=== PATIENT | male | born 1945 | race Two or more races ===

== ENCOUNTER 2023-06-18 12:16 | Inpatient (IN) | payer MEDICARE, BC ==
[2023-06-18] MEDS ORDERED: SODIUM CHLORIDE 0.9% 1,000 ML IV STA ×2 (12:41)
[2023-06-18] MEDS ORDERED: methylPREDNISolone SOD SUCCI 125 MG/2 ML VIAL IV STA (12:41)
[2023-06-18] MEDS ORDERED: IPRATROPIUM-ALBUTEROL 3 ML NEB INHALATION STA ×2 (12:41→14:41)
[2023-06-18] MEDS ORDERED: SODIUM CHLORIDE 0.9% 500 ML 500 ML IV STA ×2 (12:41→14:58)
[2023-06-18] MEDS ORDERED: AZITHROMYCIN 500 MG in SODIUM CHLORIDE 0.9% 250 ML IVPB STA (12:42)
--- NOTE | 2023-06-18 12:43 | ED ---
Weakness HPI - General Chief complaint: Altered Mental Status Stated complaint: Hypertension Time Seen by Provider: 06/18/23 12:19 Source: EMS, RN notes reviewed, old records reviewed Mode of arrival: EMS Limitations: no limitations - History of Present Illness Initial comments: This is a 77-year-old male to the emergency department for evaluation. Patient presents emergency department today for evaluation regards to weakness severe. Lightheadedness dizziness weakness. Patient is still very short of breath here in the emergency 5 and has not been feeling well. Increased cough and congestion with low blood pressure per extended care facility. MD Complaint: generalized weakness, focal weakness -: hour(s) Location: generalized Severity: severe Severity scale (1-10): 9 Quality: tingling Consistency: constant Improves with: none Worsens with: none Context: recent illness, history of similar Associated Symptoms: chest pain, confusion, fever/chills, nausea/vomiting, sh ortness of breath - Related Data Home Medications Medication Instructions Recorded Confirmed Acetaminophen Tab [Tylenol] 650 mg PO Q4H PRN 06/18/23 06/21/23 Alendronate Sodium [Fosamax] 70 mg PO TH 06/18/23 06/21/23 Clobetasol Propionate [Temovate 1 applic TOPICAL BID@0800,1700 06/18/23 06/21/23 0.05% Cream] Clopidogrel [Plavix] 75 mg PO DAILY 06/18/23 06/21/23 Ensure Enlive 237 ml PO TID@0800,1200,1700 06/18/23 06/21/23 Famotidine [Pepcid] 20 mg PO BID@0800,1700 06/18/23 06/21/23 Fluticasone Nasal [place] [Flonase 1 spray EA NOSTRIL DAILY 06/18/23 06/21/23 Nasal [place]] Fluticasone Propion/Salmeterol 1 puff INHALATION RT-BID@0800,1700 06/18/23 06/21/23 [Fluticasone-Salmeterol 500-50] Furosemide [Lasix] 20 mg PO DAILY PRN 06/18/23 06/21/23 Ipratropium-Albuterol Nebulize 3 ml INHALATION RT-QID PRN 06/18/23 06/21/23 [Duoneb 0.5 mg-3 mg/3 ml Soln] Ipratropium-Albuterol Nebulize 3 ml INHALATION RT-TID 06/18/23 06/21/23 [Duoneb 0.5 mg-3 mg/3 ml Soln] Levalbuterol Nebulized [Xopenex 1.25 mg INHALATION RT-Q6H PRN 06/18/23 06/21/23 Nebulized] Lidocaine 5% Patch [Lidoderm] 1 patch TOPICAL DAILY 06/18/23 06/21/23 Magic Cup 1 dose PO BID@1200,1700 06/18/23 06/21/23 Magnesium Hydroxide [Milk of 7,200 mg PO Q2D PRN 06/18/23 06/21/23 Magnesia Concentrate] Metoprolol Succinate (ER) [Toprol 12.5 mg PO DAILY 06/18/23 06/21/23 Xl] Midodrine [ProAmatine] 5 mg PO TID@0800,1200,1700 06/18/23 06/21/23 Multivitamins, Thera [Multivitamin 1 tab PO DAILY 06/18/23 06/21/23 (formulary)] Na Phos,M-B/Na Phos,Di-Ba [Fleet 133 ml RECTAL DAILY PRN 06/18/23 06/21/23 Adult] Rivaroxaban [Xarelto] 20 mg PO DAILY@1700 06/18/23 06/21/23 Rosuvastatin [Crestor] 20 mg PO HS 06/18/23 06/21/23 Sodium Chloride 0.65% Nasal [Deep 2 spray NASAL QID PRN 06/18/23 06/21/23 Sea (Saline)] Tamsulosin [Flomax] 0.4 mg PO BID@0800,1700 06/18/23 06/21/23 Tiotropium 18 Mcg/Puff [Spiriva] 1 puff INHALATION RT-DAILY 06/18/23 06/21/23 bisacodyL [Dulcolax] 10 mg RECTAL DAILY PRN 06/18/23 06/21/23 polyethylene glycoL 3350 [Miralax] 17 gm PO BID PRN 06/18/23 06/21/23 predniSONE [Deltasone] See Taper PO DIRECTED 06/18/23 06/21/23 Allergies Allergy/AdvReac Type Severity Reaction Status Date / Time morphine Allergy Unknown Verified 06/18/23 14:19 Review of Systems ROS Statement: Those systems with pertinent positive or pertinent negative responses have been documented in the HPI. ROS Other: All systems not noted in ROS Statement are negative. General Exam Limitations: no limitations General appearance: alert, in no apparent distress, anxious Head exam: Present: atraumatic, normocephalic, normal inspection Eye exam: Present: normal appearance, PERRL, EOMI. Absent: scleral icterus, conjunctival injection, periorbital swelling ENT exam: Present: normal exam, mucous membranes moist Neck exam: Present: normal inspection. Absent: tenderness, meningismus, lymphadenopathy Respiratory exam: Present: normal lung sounds bilaterally. Absent: respiratory distress, wheezes, rales, rhonchi, stridor Cardiovascular Exam: Present: regular rate, normal rhythm, normal heart sounds. Absent: systolic murmur, diastolic murmur, rubs, gallop, clicks GI/Abdominal exam: Present: soft, normal bowel sounds. Absent: distended, tenderness, guarding, rebound, rigid Extremities exam: Present: normal inspection, full ROM, normal capillary refill. Absent: tenderness, pedal edema, joint swelling, calf tenderness Back exam: Present: normal inspection Neurological exam: Present: alert, oriented X3, CN II-XII intact Psychiatric exam: Present: normal affect, normal mood Skin exam: Present: warm, dry, intact, normal color. Absent: rash Course Vital Signs 06/18/23 06/18/23 06/18/23 12:22 13:39 14:06 Temperature Pulse Rate 98 114 H Respiratory 18 18 Rate Blood Pressure 122/106 86/70 91/60 O2 Sat by Pulse 92 L Oximetry 06/18/23 06/18/23 06/18/23 14:17 14:27 15:00 Temperature 98.1 F Pulse Rate 107 H 103 H 111 H Respiratory 20 18 18 Rate Blood Pressure 91/59 O2 Sat by Pulse 92 L Oximetry 06/18/23 06/18/23 06/18/23 15:27 17:04 17:39 Temperature 98.5 F Pulse Rate 103 H 102 H 96 Respiratory 19 18 18 Rate Blood Pressure 94/63 86/63 87/57 O2 Sat by Pulse 97 97 94 L Oximetry - Reevaluation(s) Reevaluation #1: 06/18/23 14:46 Medical record is reviewed Reevaluation #2: 06/18/23 14:46 Patient is having mildly improved blood pressure here in the ER will still very short of breath Reevaluation #3: 06/18/23 14:46 Patient informed results questions answered Reevaluation #4: 06/18/23 14:46 Was pt. sent in by a medical professional or institution ([facility] Bec[facility], [employer], urgent care, hospital, or [place] health care facility...) When possible be specific @ -no Did you speak to anyone other than the patient for history (EMS, parent, family, police, friend...)? What history was obtained from this source @ -no Did you review nursing and triage notes (agree or disagree)? Why? @ -agree Are old charts reviewed (outside hosp., previous admission, EMS record, old EKG, old radiological studies, urgent care reports/EKG's, [place] [facility] facility records)? Report findings @ -yes Differential Diagnosis (chest pain, altered mental status, abdominal pain women, abdominal pain men, vaginal bleeding, weakness, fever, dyspnea, syncope, headache, dizziness, GI bleed, back pain, seizure, CVA, palpatations, mental health, musculoskeletal)? @ -prior EKG interpreted by me (3pts min.). @ -yes X-rays interpreted by me (1pt min.). @ -yes CT interpreted by me (1pt min.). @ -no U/S interpreted by me (1pt. min.). @ -no What testing was considered but not performed or refused? (CT, X-rays, U/S, labs)? Why? @ -none What meds were considered but not given or refused? Why? @ -none Did you discuss the management of the patient with other professionals (professionals i.e. [facility] Becerra, FURNITURE [employer]AILER, lab, RT, psych nurse, executive secretary social welfare, police lieutenant, teacher, contact officer, porter sample case)? Give summary @ -no Was smoking cessation discussed for >3mins.? @ -no Was critical care preformed (if so, how long)? @ -no Were there social determinants of health that impacted care today? How? (Homelessness, low income, unemployed, alcoholism, drug addiction, transportation, low edu. Level, literacy, decrease access to med. care, [facility], rehab)? @ -none Was there de-escalation of care discussed even if they declined (Discuss DNR or withdrawal of care, Hospice)? DNR status @ -no What co-morbidities impacted this encounter? (DM, HTN, Smoking, COPD, CAD, Cancer, CVA, ARF, Chemo, Hep., AIDS, mental health diagnosis, sleep apnea, morbid obesity)? @ -none Was patient admitted / discharged? Hospital course, mention meds given and route, prescriptions, significant lab abnormalities, going to OR and other pertinent info. @ -77 male to the emergency department for evaluation patient presents today for evaluation patient is here for evaluation regards to severe weakness lightheadedness dizziness shortness of breath with COPD pneumonia and sepsis. Patient be admitted for supportive care Admitted Undiagnosed new problem with uncertain prognosis? @ -no Drug Therapy requiring intensive monitoring for toxicity (Heparin, Nitro, Insulin, Cardizem)? @ -no Were any procedures done? @ -no Diagnosis/symptom? @ -Sepsis with pneumonia hypoxia and respiratory failure Acute, or Chronic, or Acute on Chronic? @ -Acute Uncomplicated (without systemic symptoms) or Complicated (systemic symptoms)? @ -Complicated Side effects of treatment? @ -no Exacerbation, Progression, or Severe Exacerbation? @ -exacerbation Poses a threat to life or bodily function? How? (Chest pain, [place], [place], pneumonia, PE, COPD, DKA, ARF, appy, cholecystitis, CVA, Diverticulitis, Homicidal, Suicidal, threat to staff... and all critical care pts) @ -yes severe sepsis Reevaluation #5: 06/18/23 14:46 Differential Dyspnea: Coronary syndrome, arrhythmia, tamponade, asthma, COPD, pulmonary embolism, pne umonia, pneumothorax, pulmonary effusion, anaphylaxis, diabetic ketoacidosis, flailed chest, pulmonary contusion, diaphragmatic rupture, anemia, neuromuscular, this is not meant to be an all-inclusive list. Differential Weakness: Hypoglycemia, shock, sepsis, hyponatremia, anemia, infection, [place], ETOH, adverse medicine reaction, overdose, stroke, this is not meant to be an all-inclusive list. - Consultations Consultation #1: Spoke with Dr. Morse agrees to admit this patient EKG Findings - EKG Comments: EKG Findings:: EKG is A. fib with RVR 108 QRS 124 QTC 366 Procedures - Sepsis Sepsis Focused Exam #1 Time Sepsis Criteria Met: 14:46 Sepsis Focused Exam Date: 06/18/23 Sepsis Focused Exam Time: 17:00 Sepsis Focused Exam Complete: Yes Vital Signs & RN Notes Reviewed: Yes Capillary Refill: < 2 Seconds: Fingers, Toes Peripheral Pulses: Normal: Radial (R), Radial (L), Posterior Tibialis (R), Posterior Tibialis (L), Dorsalis Pedis (R), Dorsalis Pedis (L) Skin Color: Normal for Patient Respiratory Exam: respiratory distress, wheezes Cardiovascular Exam: regular rate Medical Decision Making - Medical Decision Making 77 male to the emergency department for evaluation patient presents today for evaluation patient is here for evaluation regards to severe weakness lightheadedness dizziness shortness of breath with COPD pneumonia and sepsis. Patient be admitted for supportive care - Lab Data Result diagrams: 06/19/23 07:05 06/19/23 06:59 Lab Results 06/18/23 06/18/23 06/18/23 Range/Units 12:55 12:55 12:55 WBC 7.7 (3.8-10.6) k/uL RBC 2.72 L (4.30-5.90) m/uL Hgb 8.1 L (13.0-17.5) gm/dL Hct 23.9 L (39.0-53.0) % MCV 87.8 (80.0-100.0) fL MCH 29.7 (25.0-35.0) pg MCHC 33.8 (31.0-37.0) g/dL RDW 15.6 H (11.5-15.5) % Plt Count 84 L (150-450) k/uL MPV 8.9 Neutrophils % 94 % Lymphocytes % 2 % Monocytes % 3 % Eosinophils % 0 % Basophils % 0 % Neutrophils # 7.2 (1.3-7.7) k/uL Lymphocytes # 0.1 L (1.0-4.8) k/uL Monocytes # 0.3 (0-1.0) k/uL Eosinophils # 0.0 (0-0.7) k/uL Basophils # 0.0 (0-0.2) k/uL Manual Slide Review Performed Polychromasia Present Hypochromasia Slight PT 17.3 H (10.0-12.5) sec INR 1.7 H (<1.2) APTT 35.6 H (22.0-30.0) sec Sodium 127 L (137-145) mmol/L Potassium 4.0 (3.5-5.1) mmol/L Chloride 92 L (98-107) mmol/L Carbon Dioxide 30 (22-30) mmol/L Anion Gap 5 mmol/L BUN 30 H (9-20) mg/dL Creatinine 0.30 L (0.66-1.25) mg/dL Est GFR (CKD-EPI)AfAm >90 (>60 ml/min/1.73 sqM) Est GFR (CKD-EPI)NonAf >90 (>60 ml/min/1.73 sqM) Glucose 119 H (74-99) mg/dL Lactic Ac Sepsis Rflx Plasma Lactic Acid [place] (0.7-2.0) mmol/L Calcium 7.3 L (8.4-10.2) mg/dL Phosphorus 2.7 (2.5-4.5) mg/dL Magnesium 2.1 (1.6-2.3) mg/dL Total Bilirubin 0.8 (0.2-1.3) mg/dL AST 43 (17-59) U/L ALT 45 (4-49) U/L Alkaline Phosphatase 79 (38-126) U/L Troponin I (0.000-0.034) ng/mL NT-Pro-B Natriuret Pep 723 pg/mL Total Protein 4.5 L (6.3-8.2) g/dL Albumin 2.4 L (3.5-5.0) g/dL TSH 0.830 (0.465-4.680) mIU/L 06/18/23 06/18/23 06/18/23 Range/Units 12:55 12:55 13:37 WBC (3.8-10.6) k/uL RBC (4.30-5.90) m/uL Hgb (13.0-17.5) gm/dL Hct (39.0-53.0) % MCV (80.0-100.0) fL MCH (25.0-35.0) pg MCHC (31.0-37.0) g/dL RDW (11.5-15.5) % Plt Count (150-450) k/uL MPV Neutrophils % % Lymphocytes % % Monocytes % % Eosinophils % % Basophils % % Neutrophils # (1.3-7.7) k/uL Lymphocytes # (1.0-4.8) k/uL Monocytes # (0-1.0) k/uL Eosinophils # (0-0.7) k/uL Basophils # (0-0.2) k/uL Manual Slide Review Polychromasia Hypochromasia PT (10.0-12.5) sec INR (<1.2) APTT (22.0-30.0) sec Sodium (137-145) mmol/L Potassium (3.5-5.1) mmol/L Chloride (98-107) mmol/L Carbon Dioxide (22-30) mmol/L Anion Gap mmol/L BUN (9-20) mg/dL Creatinine (0.66-1.25) mg/dL Est GFR (CKD-EPI)AfAm (>60 ml/min/1.73 sqM) Est GFR (CKD-EPI)NonAf (>60 ml/min/1.73 sqM) Glucose (74-99) mg/dL Lactic Ac Sepsis Rflx Y Plasma Lactic Acid [place] 2.2 H* (0.7-2.0) mmol/L Calcium (8.4-10.2) mg/dL Phosphorus (2.5-4.5) mg/dL Magnesium (1.6-2.3) mg/dL Total Bilirubin (0.2-1.3) mg/dL AST (17-59) U/L ALT (4-49) U/L Alkaline Phosphatase (38-126) U/L Troponin I 0.041 H* (0.000-0.034) ng/mL NT-Pro-B Natriuret Pep pg/mL Total Protein (6.3-8.2) g/dL Albumin (3.5-5.0) g/dL TSH (0.465-4.680) mIU/L - EKG Data -: EKG Interpreted by Me - Radiology Data Radiology results: report reviewed (Chest x-rays positive for pneumonia), image reviewed Critical Care Time Critical Care Time: Yes Total Critical Care Time: 31 Disposition Clinical Impression: Sepsis, Altered mental status, Delirium due to general medical condition, Pneumonia, COPD (chronic obstructive pulmonary disease), Hypoxia, Acute respiratory failure Disposition: ADMITTED IP TO THIS HOSP Is patient prescribed a controlled substance at d/c from ED?: No Time of Disposition: 14:45
[2023-06-18 13:15] LABS: Basophils % (A) 0 %; Eosinophils % (A) 0 %; HCT 23.9 % (39.0-53.0); HGB 8.1 gm/dL (13.0-17.5); Hypochromasia Slight; Lymphocytes # (A) 0.1 k/uL (1.0-4.8); Lymphocytes % (A) 2 %; MCH 29.7 pg (25.0-35.0); MCHC 33.8 g/dL (31.0-37.0); MCV 87.8 fL (80.0-100.0); Mean Platelet Volume 8.9; Monocytes # (A) 0.3 k/uL (0-1.0); Monocytes % (A) 3 %; Neutrophils # (A) 7.2 k/uL (1.3-7.7); Neutrophils % (A) 94 %; RBC 2.72 m/uL (4.30-5.90); RDW 15.6 % (11.5-15.5); WBC 7.7 k/uL (3.8-10.6)
[2023-06-18 13:16] LABS: INR 1.7 (<1.2); Partial Thromboplastin Time 35.6 sec (22.0-30.0); Prothrombin Time 17.3 sec (10.0-12.5)
[2023-06-18 13:17] LABS: ALT 45 U/L (4-49); AST 43 U/L (17-59); African American GFR (CKD) >90 (>60 ml/min/1.73 sqM); Albumin 2.4 g/dL (3.5-5.0); Alkaline Phosphatase 79 U/L (38-126); Anion Gap 5 mmol/L; Blood Urea Nitrogen 30 mg/dL (9-20); Calcium 7.3 mg/dL (8.4-10.2); Carbon Dioxide 30 mmol/L (22-30); Chloride 92 mmol/L (98-107); Glucose 119 mg/dL (74-99); Magnesium 2.1 mg/dL (1.6-2.3); Non-African American GFR(CKD) >90 (>60 ml/min/1.73 sqM); Phosphorus 2.7 mg/dL (2.5-4.5); Sodium 127 mmol/L (137-145); Total Bilirubin 0.8 mg/dL (0.2-1.3); Total Protein 4.5 g/dL (6.3-8.2)
[2023-06-18 13:24] LABS: Platelet Count 84 k/uL (150-450)
[2023-06-18 13:26] LABS: NT-Pro-B-Type Natriuretic Pept 723 pg/mL; Polychromasia Present
--- NOTE | 2023-06-18 13:39 | XR ---
EXAMINATION TYPE: XR chest 1V portable DATE OF EXAM: 06/18/2023 HISTORY: Shortness of breath. COMPARISON: None. TECHNIQUE: Single view of the chest is submitted. FINDINGS: Demonstrated are scattered senescent parenchymal change. Moderate upper lobe emphysematous changes s uggested. Right lower lobe infiltrate. Correlate for pneumonia. The heart is stable. Hilar and mediastinal structures are within normal limits. Degenerative changes are seen of the dorsal spine. IMPRESSION: 1. Right lower lobe infiltrate. Correlate for pneumonia.
[2023-06-18] MEDS ORDERED: ONDANSETRON 4 MG/2 ML VIAL IVP PRN (14:41)
[2023-06-18] MEDS ORDERED: NALOXONE 0.4 MG/ML 1 ML VIAL IV PRN (14:41)
[2023-06-18] MEDS ORDERED: IBUPROFEN 400 MG TAB PO PRN (14:41)
[2023-06-18] MEDS ORDERED: PNEUMONIA PROTOCOL UTILIZED 1 EACH MISC PO PRN (14:41)
[2023-06-18] MEDS ORDERED: ACETAMINOPHEN TAB 325 MG TAB PO PRN ×2 (14:41→18:51)
[2023-06-18] MEDS: ALBUTEROL NEBULIZED 2.5 MG/3 ML INHALATION SCH ×2 (15:54→19:38)
[2023-06-18] MEDS ORDERED: FUROSEMIDE 20 MG TAB PO PRN (18:51)
[2023-06-18] MEDS ORDERED: MAGNESIUM HYDROXIDE 2,400 MG/30 ML CUP PO PRN (18:51)
[2023-06-18] MEDS ORDERED: ALBUTEROL NEBULIZED 2.5 MG/3 ML INHALATION PRN (18:51)
[2023-06-18] MEDS ORDERED: IPRATROPIUM-ALBUTEROL 3 ML NEB INHALATION PRN (18:51)
[2023-06-18] MEDS ORDERED: NA PHOS,M-B/NA PHOS,DI-BA 133 ML ENEMA RECTAL PRN (18:51)
[2023-06-18] MEDS ORDERED: bisacodyL 10 MG SUPP RECTAL PRN (18:51)
[2023-06-18] MEDS ORDERED: polyethylene glycoL 3350 17 GM POWD.PACK PO PRN (18:51)
[2023-06-18] MEDS ORDERED: SODIUM CHLORIDE 0.65% NASAL SPRAY 44 ML BTL NASAL PRN (18:51)
[2023-06-18] MEDS: IPRATROPIUM-ALBUTEROL 3 ML NEB INHALATION SCH (19:39)
[2023-06-18] MEDS: ATORVASTATIN 40 MG TAB PO SCH (21:21)
[2023-06-19 02:23] LABS: Appearance,Urine Clear (Clear); Color,Urine Yellow; Glucose,Urine (UA) Negative (Negative); Ketones,Urine 1+ (Negative); PH, Urine 6.5 (5.0-8.0); Protein,Urine Trace (Negative)
[2023-06-19 02:24] LABS: Bilirubin,Urine Negative (Negative); Blood,Urine Negative (Negative); Leukocyte Esterase,Urine Negative (Negative); Nitrite,Urine Negative (Negative); Urobilinogen,Urine <2.0 mg/dL (<2.0)
[2023-06-19 02:27] LABS: Mucus,Urine Rare /hpf; RBC,Urine 2 /hpf (0-5); Squamous Epithelial Cell,Urine <1 /hpf (0-4); WBC,Urine 4 /hpf (0-5)
[2023-06-19] MEDS: ALBUTEROL NEBULIZED 2.5 MG/3 ML INHALATION SCH (07:43)
[2023-06-19] MEDS: IPRATROPIUM-ALBUTEROL 3 ML NEB INHALATION SCH ×4 (07:43→20:10)
[2023-06-19 07:56] LABS: Basophils % (A) 0 %; Eosinophils % (A) 0 %; HCT 23.7 % (39.0-53.0); HGB 7.5 gm/dL (13.0-17.5); Hypochromasia Moderate; Lymphocytes # (A) 0.1 k/uL (1.0-4.8); Lymphocytes % (A) 2 %; MCH 29.3 pg (25.0-35.0); MCHC 31.8 g/dL (31.0-37.0); MCV 92.1 fL (80.0-100.0); Mean Platelet Volume 7.9; Monocytes # (A) 0.2 k/uL (0-1.0); Monocytes % (A) 3 %; Neutrophils # (A) 6.6 k/uL (1.3-7.7); Neutrophils % (A) 95 %; RBC 2.57 m/uL (4.30-5.90)
[2023-06-19 07:59] LABS: Platelet Count 84 k/uL (150-450)
[2023-06-19] MEDS ORDERED: NON FORMULARY DRUG (Tiotropium 18 Mcg/Puff 1 PUFF Each) INHALATION SCH (08:00)
[2023-06-19] MEDS ORDERED: NON FORMULARY DRUG (Ensure Enlive 237 ML) PO SCH (08:00)
[2023-06-19] MEDS ORDERED: SYMBICORT 160-4.5 MCG INHALER INHALATION SCH (08:00)
[2023-06-19 08:09] LABS: ALT 47 U/L (4-49); AST 40 U/L (17-59); African American GFR (CKD) >90 (>60 ml/min/1.73 sqM); Albumin 2.2 g/dL (3.5-5.0); Alkaline Phosphatase 80 U/L (38-126); Anion Gap 2 mmol/L; Blood Urea Nitrogen 23 mg/dL (9-20); Calcium 6.8 mg/dL (8.4-10.2); Carbon Dioxide 29 mmol/L (22-30); Chloride 99 mmol/L (98-107); Globulin 2.1 g/dL; Glucose 96 mg/dL (74-99); Non-African American GFR(CKD) >90 (>60 ml/min/1.73 sqM); Phosphorus 2.5 mg/dL (2.5-4.5); Potassium 3.6 mmol/L (3.5-5.1); Sodium 130 mmol/L (137-145); Total Bilirubin 0.9 mg/dL (0.2-1.3); Total Protein 4.3 g/dL (6.3-8.2)
[2023-06-19] MEDS: METOPROLOL SUCCINATE (ER) 25 MG TAB.ER.24H PO SCH (08:24)
[2023-06-19] MEDS: CLOPIDOGREL 75 MG TAB PO SCH (08:24)
[2023-06-19] MEDS: MULTIVITAMINS, THERA 1 EACH TAB PO SCH (08:24)
[2023-06-19] MEDS: TAMSULOSIN 0.4 MG CAP.ER.24H PO SCH ×2 (08:25→18:08)
[2023-06-19] MEDS: FAMOTIDINE 20 MG TAB PO SCH ×2 (08:25→18:08)
[2023-06-19] MEDS: MIDODRINE 5 MG TAB PO SCH ×3 (08:25→18:09)
[2023-06-19] MEDS: LIDOCAINE 5% PATCH TOPICAL SCH (08:26)
[2023-06-19] MEDS ORDERED: FLUTICASONE 50MCG/SPRAY NASAL 16GM EA NOSTRIL SCH (09:00)
[2023-06-19] MEDS ORDERED: NON FORMULARY DRUG (Magic Cup 1 EACH Ml) PO SCH (12:00)
--- NOTE | 2023-06-19 12:24 | XR ---
EXAM: XR chest 1V portable CLINICAL INDICATION:Male, 77 years old with history of pneumonia; [facility] COMPARISON: Chest x-ray 06/18/2023 TECHNIQUE: Chest single view. FINDINGS: Lines/tubes/devices: EKG leads overlie the chest. No indwelling lines are seen. Cardiomediastinum: Patient is somewhat rotated to the right, limiting assessment. Grossly stable cardiomediastinal silho uette. Heart appears mildly enlarged. Aorta is somewhat tortuous. Right hilar opacity redemonstrated. Vasculature: No increased pulmonary vasculature. Lungs/pleura: COPD and chronic senescent changes. Similar appearing patchy consolidative opacity in the right lung base with partial obscuration of the hemidiaphragm noted. Small right pleural effusion not excluded. No visible pneumothorax. Nodular opacities towards the right lung apex appear similar to prior. Bones/soft tissues: Bony thorax appears grossly intact as seen. Small sclerotic density in the right humeral head. Region al soft tissues appear unremarkable. IMPRESSION: 1. Similar appearing patchy consolidative opacity in the right lung base, likely pneumonia. Possible small right pleural effusion. 2. Nodular opacities towards the right lung apex, and right hilar opacity, similar to prior. Finding s could relate to adenopathy and/or neoplasm. Further follow-up evaluation with CT is advised when cl inically appropriate.
--- NOTE | 2023-06-19 12:52 | P.CNPUL ---
History of Present Illness Consult date: 06/19/23 Requesting physician: Tapan Morse Reason for consult: dyspnea, COPD Chief complaint: Shortness of breath, altered mental status, hypotension History of present illness: This is 77-year-old male patient with a known history of chronic obstructive pulmonary disease on home oxygen at 3 L/m per nasal cannula, chronic tobacco dependence however quit approximately 3 months ago, BPH, hyperlipidemia, congestive heart failure, atrial fibrillation anticoagulated with Xarelto. He was brought into the emergency room yesterday for altered mental status and delirium and hypoxemia. Chest x-ray revealed patchy consolidative opacity in the right lung base and small right pleural effusion. Nodular opacities in the right lung apex and right hilar opacity. White counts and 0.0. Hemoglobin 7.5. Platelets 84,000. Sodium 1:30. Potassium 3.6. Bicarb 29. BUN 26. Creatinine 0.26. Troponin 0.041. ProBNP 723. He is seen today in consultation on the regular medical floor. He is currently resting comfortably in bed. Awake and alert. He has a very loose congested cough. He is maintaining O2 saturations in the low 90s on 3 L/m per nasal cannula. He is afebrile. He's been initiated on ceftriaxone and azithromycin. Anticoagulated with Xarelto. Review of Systems REVIEW OF SYSTEMS: CONSTITUTIONAL: Positive for generalized weakness. Denies any recent signifi cant weight loss or weight gain. EYES: Denies change in vision. EARS, NOSE, MOUTH, THROAT: Denies headaches, denies sore throat. CARDIOVASCULAR: Denies chest pain, palpitations or syncopal episodes. RESPIRATORY: Positive for shortness of breath, cough, congestion no hemoptysis. GASTROINTESTINAL: Denies change in appetite, denies abdominal pain GENITOURINARY: Denies hematuria, denies infections. MUSKULOSKELETAL: Denies pain, denies swelling. INTEGUMENTARY: Denies rash, denies eczema. NEUROLOGICAL: Positive for altered mental status. Denies recent memory loss, no recent seizure activity. PSYCHIATRIC: Denies anxiety, denies depression. HEMATOLOGIC/LYMPHATIC: Denies anemia, denies enlarged lymph nodes. Past Medical History History of Any Multi-Drug Resistant Organisms: None Reported Smoking Status: Former smoker Medications and Allergies Home Medications Medication Instructions Recorded Confirmed Type Acetaminophen Tab [Tylenol] 650 mg PO Q4H PRN 06/18/23 06/18/23 History Alendronate Sodium [Fosamax] 70 mg PO TH 06/18/23 06/18/23 History Clobetasol Propionate [Temovate 1 applic TOPICAL BID@0800,1700 06/18/23 06/18/23 History 0.05% Cream] Clopidogrel [Plavix] 75 mg PO DAILY 06/18/23 06/18/23 History Ensure Enlive 237 ml PO TID@0800,1200,1700 06/18/23 06/18/23 History Famotidine [Pepcid] 20 mg PO BID@0800,1700 06/18/23 06/18/23 History Fluticasone Nasal [place] [Flonase 1 spray EA NOSTRIL DAILY 06/18/23 06/18/23 History Nasal [place]] Fluticasone Propion/Salmeterol 1 puff INHALATION RT-BID@0800,1700 06/18/23 06/18/23 History [Fluticasone-Salmeterol 500-50] Furosemide [Lasix] 20 mg PO DAILY PRN 06/18/23 06/18/23 History Ipratropium-Albuterol Nebulize 3 ml INHALATION RT-QID PRN 06/18/23 06/18/23 History [Duoneb 0.5 mg-3 mg/3 ml Soln] Ipratropium-Albuterol Nebulize 3 ml INHALATION RT-TID 06/18/23 06/18/23 History [Duoneb 0.5 mg-3 mg/3 ml Soln] Levalbuterol Nebulized [Xopenex 1.25 mg INHALATION RT-Q6H PRN 06/18/23 06/18/23 History Nebulized] Lidocaine 5% Patch [Lidoderm] 1 patch TOPICAL DAILY 06/18/23 06/18/23 History Magic Cup 1 dose PO BID@1200,1700 06/18/23 06/18/23 History Magnesium Hydroxide [Milk of 7,200 mg PO Q2D PRN 06/18/23 06/18/23 History Magnesia Concentrate] Metoprolol Succinate (ER) [Toprol 12.5 mg PO DAILY 06/18/23 06/18/23 History Xl] Midodrine [ProAmatine] 5 mg PO TID@0800,1200,1700 06/18/23 06/18/23 History Multivitamins, Thera [Multivitamin 1 tab PO DAILY 06/18/23 06/18/23 History (formulary)] Na Phos,M-B/Na Phos,Di-Ba [Fleet 133 ml RECTAL DAILY PRN 06/18/23 06/18/23 History Adult] Rivaroxaban [Xarelto] 20 mg PO DAILY@1700 06/18/23 06/18/23 History Rosuvastatin [Crestor] 20 mg PO HS 06/18/23 06/18/23 History Sodium Chloride 0.65% Nasal [Deep 2 spray NASAL QID PRN 06/18/23 06/18/23 History Sea (Saline)] Tamsulosin [Flomax] 0.4 mg PO BID@0800,1700 06/18/23 06/18/23 History Tiotropium 18 Mcg/Puff [Spiriva] 1 puff INHALATION RT-DAILY 06/18/23 06/18/23 History bisacodyL [Dulcolax] 10 mg RECTAL DAILY PRN 06/18/23 06/18/23 History polyethylene glycoL 3350 [Miralax] 17 gm PO BID PRN 06/18/23 06/18/23 History predniSONE [Deltasone] See Taper PO DIRECTED 06/18/23 06/18/23 History Allergies Allergy/AdvReac Type Severity Reaction Status Date / Time morphine Allergy Unknown Verified 06/18/23 14:19 Physical Exam Vitals: Vital Signs Temp Pulse Pulse Resp BP BP Pulse Ox 06/19/23 08:00 104 H 17 06/19/23 07:55 93 06/19/23 07:44 92 06/19/23 07:10 97.6 F 104 H 17 90/55 91 L 06/19/23 02:00 98 F 68 19 100/67 91 L 06/18/23 19:50 96 06/18/23 19:49 97.7 F 65 19 86/60 97 06/18/23 19:40 94 L 06/18/23 19:39 96 06/18/23 17:39 98.5 F 96 18 87/57 94 L 06/18/23 17:04 102 H 18 86/63 97 06/18/23 15:27 103 H 19 94/63 97 06/18/23 15:00 98.1 F 111 H 18 91/59 92 L 06/18/23 14:27 103 H 18 06/18/23 14:17 107 H 20 06/18/23 14:06 114 H 18 91/60 06/18/23 13:39 98 18 86/70 92 L Intake and Output 06/18/23 06/19/23 06/19/23 22:59 06:59 14:59 Intake Total 180 Output Total 1400 Balance 180 -1400 Intake: Intake, IV Titration 130 Amount Sodium Chloride 0.9% 1, 130 000 ml @ 130 mls/hr IV . Q7H42M STA Rx#:[id number] Oral 50 Output: Urine 700 Straight 700 Post Void Residual 700 Other: Voiding Method External Catheter External Catheter # Voids 1 1 Weight 49.8 kg GENERAL EXAM: Alert, weak, cachectic, 77-year-old male, on 3 L nasal cannula, in no acute distress. HEAD: Normocephalic. EYES: Normal reaction of pupils, equal size. NOSE: Clear with pink turbinates. THROAT: No erythema or exudates. NECK: No masses, no JVD. CHEST: No chest wall deformity. LUNGS: Equal air entry with lateral end expiratory wheeze, diminished, crackles in the right lung base. CVS: S1 and S2 normal with no audible murmur, irregular rhythm. ABDOMEN: No hepatosplenomegaly, normal bowel sounds, no guarding or rigidity. SPINE: No scoliosis or deformity SKIN: No rashes CENTRAL NERVOUS SYSTEM: No focal deficits, tone is normal in all 4 extremities. EXTREMITIES: There is no peripheral edema. No clubbing, no cyanosis. Peripheral pulses are intact. Results - Laboratory Findings CBC and BMP: 06/19/23 07:05 06/19/23 06:59 PT/INR, D-dimer PT 17.3 sec (10.0-12.5) H 06/18/23 12:55 INR 1.7 (<1.2) H 06/18/23 12:55 Abnormal lab findings: Abnormal Labs 06/18/23 06/18/23 06/18/23 12:55 12:55 12:55 RBC 2.72 L Hgb 8.1 L Hct 23.9 L RDW 15.6 H Plt Count 84 L Lymphocytes # 0.1 L PT 17.3 H INR 1.7 H APTT 35.6 H Sodium 127 L Chloride 92 L BUN 30 H Creatinine 0.30 L Glucose 119 H Plasma Lactic Acid Harrison Calcium 7.3 L Troponin I Total Protein 4.5 L Albumin 2.4 L Urine Mucus 06/18/23 06/18/23 06/18/23 12:55 12:55 15:20 RBC Hgb Hct RDW Plt Count Lymphocytes # PT INR APTT Sodium Chloride BUN Creatinine Glucose Plasma Lactic Acid Harrison 2.2 H* Calcium Troponin I 0.041 H* 0.040 H* Total Protein Albumin Urine Mucus 06/18/23 06/18/23 06/19/23 17:33 23:59 06:59 RBC Hgb Hct RDW Plt Count Lymphocytes # PT INR APTT Sodium 130 L Chloride BUN 23 H Creatinine 0.26 L Glucose Plasma Lactic Acid Harrison Calcium 6.8 L Troponin I 0.041 H* Total Protein 4.3 L Albumin 2.2 L Urine Mucus Rare H 06/19/23 07:05 RBC 2.57 L Hgb 7.5 L Hct 23.7 L RDW 16.0 H Plt Count 84 L Lymphocytes # 0.1 L PT INR APTT Sodium Chloride BUN Creatinine Glucose Plasma Lactic Acid Harrison Calcium Troponin I Total Protein Albumin Urine Mucus - Diagnostic Findings Chest x-ray: image reviewed Assessment and Plan Assessment: Acute on chronic hypoxemic respiratory failure secondary to an acute exac erbation of COPD complicated by possible right lower lobe pneumonia and some fluid volume overload History of oxygen dependent chronic obstructive pulmonary disease Atrial fibrillation, antiplatelet with Eliquis Hyperlipidemia Hypertension History of congestive heart failure History of BPH Plan: The patient was seen and evaluated Chest x-rays, labs and medications reviewed Continue Rocephin and azithromycin Allergen IV Cymetra 6 mg every 6 hours Add to an every inhalations 4 times a day and when necessary Add Pulmicort and Perforomist inhalations Add Mucinex Obtain a sputum sample We will continue to follow and make further recommendations based on his clinical status I have personally seen and examined the patient, performed the documentation and the assessment and plan as written. Number of minutes spent on the visit: 20.
[2023-06-19] MEDS: methylPREDNISolone SOD SUCCI 125 MG/2 ML VIAL IV SCH ×2 (13:25→18:11)
[2023-06-19] MEDS: SODIUM CHLORIDE 0.9% 1,000 ML IV SCH (13:25)
[2023-06-19] MEDS: AZITHROMYCIN 500 MG in SODIUM CHLORIDE 0.9% 250 ML IVPB SCH (13:26)
[2023-06-19] MEDS: guaiFENesin 600 MG TABLET.ER PO SCH ×3 (13:28→20:54)
[2023-06-19 13:48] VITALS: BMI 15.7
--- NOTE | 2023-06-19 15:03 | P.HPIM ---
History of Present Illness H&P Date: 06/19/23 Chief Complaint: Weakness diet congestion This is a 77-year-old patient who follows with Dr. Noah Riggins. History is obtained by patient's significant other Greta at the Bedside. They've Been Together for over 21 Years. Patient uses discharge from [facility] and sent to [facility] rehab about 5 days ago. Patient for the longest times had decreased oral intake. Congested cough. Long-standing smoker. Loss of muscle mass and rate. Tired. Dizzy. Low blood pressure. Does use a walker. Review of systems: GEN.: Tired decreased appetite EYES: None HEENT: None NECK: None RESPIRATORY: Cough short of breath CARDIOVASCULAR: None GASTROINTESTINAL: None GENITOURINARY: None MUSCULOSKELETAL: Increase muscle vasculitis weakness LYMPHATICS: None HEMATOLOGICAL: None PSYCHIATRY: None NEUROLOGICAL: None Past medical history to include: COPD, atrial flutter, peripheral artery disease with a bypass, hyperlipidemia, GERD, BPH Social history: Patient stopped smoking about 6 weeks ago. Average 3-4 packs a day for most of his life. Now down to a few cigarettes a day. Smoking for 56 years. Patient's significant other is Greta Physical examination: VITAL SIGNS: 97.6, 104, 17, 90/55, 91% on 3 L GENERAL: BMI 15.8, reclining but awake tired. EYES: [Pupils equal. Conjunctiva pale l. HEENT: [External appearance of nose and ears normal, oral cavity-poor oral hygiene with crusty presentation NECK: JVD not raised; masses not palpable. HEART: First and second heart sounds are normal; no edema. LUNGS: Respiratory rate increased decreased breath sound some coarse basal crackles. ABDOMEN: Soft, nontender, liver spleen not palpable, no masses palpable. PSYCH: Alert and oriented x3; mood and affect tiredl. MUSCULOSKELETAL:No Clubbing/cyanosis;muscles-grossly intact. Loss of muscle mass. Prominent bones. NEUROLOGICAL: Cranial nerves grossly intact; no facial asymmetry, power and sensation grossly intact. LYMPHATICS: No lymph nodes palpable in the axilla and neck INVESTIGATIONS, reviewed in the clinical context: White count 7 hemoglobin 7.5 platelets 84 sodium 1:30 potassium 3.6 BUN 23 creatinine 0.26 albumin 2.2 EKG tracing personally reviewed by me-atrial flutter. Right bundle-branch block. Chest x-ray film personally reviewed by me-right basilar infiltrate. Borderline cardiomegaly Assessment and plan: -Right lower lobe pneumonia. Suspect gram-negative organism IV ceftriaxone. Zithromax. Mucinex. -Acute COPD exacerbation in the long-standing smoker. Hasn't smoked for 6 weeks DuoNeb. Solu-Medrol. -Severe protein calorie malnutrition. According to significant other patient has not eaten for a long time. Glucerna. -Persistent atrial flutter, rate controlled Toprol-XL 12.5 mg a day. Xarelto 20 mg a day -Hyperlipidemia Crestor 20 mg daily at bedtime -GERD Pepcid 20 mg twice a day -BPH Flomax 0.4 mg twice a day -Chronic hypotension Midodrine 5 mg 3 times a day ROSA stockings -Chronic medical debility -DO NOT RESUSCITATE. -Greta MAGALLANES significant other Advance care planning: [06/19/2023] Care was discussed length with patient's significant other Greta. She understands prognosis is guarded. Patient has not been eating for a long time. Oral condition is due to recheck. Patient does not improve significantly on the road she does understand hospice would be appropriate. At the present time continue treatment Time spent for this about 25 minutes Past Medical History History of Any Multi-Drug Resistant Organisms: None Reported Smoking Status: Former smoker Medications and Allergies Home Medications Medication Instructions Recorded Confirmed Type Acetaminophen Tab [Tylenol] 650 mg PO Q4H PRN 06/18/23 06/18/23 History Alendronate Sodium [Fosamax] 70 mg PO TH 06/18/23 06/18/23 History Clobetasol Propionate [Temovate 1 applic TOPICAL BID@0800,1700 06/18/23 06/18/23 History 0.05% Cream] Clopidogrel [Plavix] 75 mg PO DAILY 06/18/23 06/18/23 History Ensure Enlive 237 ml PO TID@0800,1200,1700 06/18/23 06/18/23 History Famotidine [Pepcid] 20 mg PO BID@0800,1700 06/18/23 06/18/23 History Fluticasone Nasal [place] [Flonase 1 spray EA NOSTRIL DAILY 06/18/23 06/18/23 History Nasal [place]] Fluticasone Propion/Salmeterol 1 puff INHALATION RT-BID@0800,1700 06/18/23 06/18/23 History [Fluticasone-Salmeterol 500-50] Furosemide [Lasix] 20 mg PO DAILY PRN 06/18/23 06/18/23 History Ipratropium-Albuterol Nebulize 3 ml INHALATION RT-QID PRN 06/18/23 06/18/23 History [Duoneb 0.5 mg-3 mg/3 ml Soln] Ipratropium-Albuterol Nebulize 3 ml INHALATION RT-TID 06/18/23 06/18/23 History [Duoneb 0.5 mg-3 mg/3 ml Soln] Levalbuterol Nebulized [Xopenex 1.25 mg INHALATION RT-Q6H PRN 06/18/23 06/18/23 History Nebulized] Lidocaine 5% Patch [Lidoderm] 1 patch TOPICAL DAILY 06/18/23 06/18/23 History Magic Cup 1 dose PO BID@1200,1700 06/18/23 06/18/23 History Magnesium Hydroxide [Milk of 7,200 mg PO Q2D PRN 06/18/23 06/18/23 History Magnesia Concentrate] Metoprolol Succinate (ER) [Toprol 12.5 mg PO DAILY 06/18/23 06/18/23 History Xl] Midodrine [ProAmatine] 5 mg PO TID@0800,1200,1700 06/18/23 06/18/23 History Multivitamins, Thera [Multivitamin 1 tab PO DAILY 06/18/23 06/18/23 History (formulary)] Na Phos,M-B/Na Phos,Di-Ba [Fleet 133 ml RECTAL DAILY PRN 06/18/23 06/18/23 History Adult] Rivaroxaban [Xarelto] 20 mg PO DAILY@1700 06/18/23 06/18/23 History Rosuvastatin [Crestor] 20 mg PO HS 06/18/23 06/18/23 History Sodium Chloride 0.65% Nasal [Deep 2 spray NASAL QID PRN 06/18/23 06/18/23 Hi story Sea (Saline)] Tamsulosin [Flomax] 0.4 mg PO BID@0800,1700 06/18/23 06/18/23 History Tiotropium 18 Mcg/Puff [Spiriva] 1 puff INHALATION RT-DAILY 06/18/23 06/18/23 History bisacodyL [Dulcolax] 10 mg RECTAL DAILY PRN 06/18/23 06/18/23 History polyethylene glycoL 3350 [Miralax] 17 gm PO BID PRN 06/18/23 06/18/23 History predniSONE [Deltasone] See Taper PO DIRECTED 06/18/23 06/18/23 History Allergies Allergy/AdvReac Type Severity Reaction Status Date / Time morphine Allergy Unknown Verified 06/18/23 14:19 Physical Exam Vitals: Vital Signs Temp Pulse Pulse Resp BP BP Pulse Ox 06/19/23 08:00 104 H 17 06/19/23 07:55 93 06/19/23 07:44 92 06/19/23 07:10 97.6 F 104 H 17 90/55 91 L 06/19/23 02:00 98 F 68 19 100/67 91 L 06/18/23 19:50 96 06/18/23 19:49 97.7 F 65 19 86/60 97 06/18/23 19:40 94 L 06/18/23 19:39 96 06/18/23 17:39 98.5 F 96 18 87/57 94 L 06/18/23 17:04 102 H 18 86/63 97 06/18/23 15:27 103 H 19 94/63 97 06/18/23 15:00 98.1 F 111 H 18 91/59 92 L 06/18/23 14:27 103 H 18 06/18/23 14:17 107 H 20 06/18/23 14:06 114 H 18 91/60 06/18/23 13:39 98 18 86/70 92 L 06/18/23 12:22 122/106 Intake and Output 06/18/23 06/19/23 06/19/23 22:59 06:59 14:59 Intake Total 180 Output Total 1400 Balance 180 -1400 Intake: Intake, IV Titration 130 Amount Sodium Chloride 0.9% 1, 130 000 ml @ 130 mls/hr IV . Q7H42M STA Rx#:[id number] Oral 50 Output: Urine 700 Straight 700 Post Void Residual 700 Other: Voiding Method External Catheter External Catheter # Voids 1 1 Weight 49.8 kg Results CBC & Chem 7: 06/19/23 07:05 06/19/23 06:59 Labs: Abnormal Lab Results - Last 24 Hours (Table) 06/18/23 06/18/23 06/18/23 Range/Units 12:55 12:55 12:55 RBC 2.72 L (4.30-5.90) m/uL Hgb 8.1 L (13.0-17.5) gm/dL Hct 23.9 L (39.0-53.0) % RDW 15.6 H (11.5-15.5) % Plt Count 84 L (150-450) k/uL Lymphocytes # 0.1 L (1.0-4.8) k/uL PT 17.3 H (10.0-12.5) sec INR 1.7 H (<1.2) APTT 35.6 H (22.0-30.0) sec Sodium 127 L (137-145) mmol/L Chloride 92 L (98-107) mmol/L BUN 30 H (9-20) mg/dL Creatinine 0.30 L (0.66-1.25) mg/dL Glucose 119 H (74-99) mg/dL Plasma Lactic Acid Harrison (0.7-2.0) mmol/L Calcium 7.3 L (8.4-10.2) mg/dL Troponin I (0.000-0.034) ng/mL Total Protein 4.5 L (6.3-8.2) g/dL Albumin 2.4 L (3.5-5.0) g/dL Urine Mucus (None) /hpf 06/18/23 06/18/23 06/18/23 Range/Units 12:55 12:55 15:20 RBC (4.30-5.90) m/uL Hgb (13.0-17.5) gm/dL Hct (39.0-53.0) % RDW (11.5-15.5) % Plt Count (150-450) k/uL Lymphocytes # (1.0-4.8) k/uL PT (10.0-12.5) sec INR (<1.2) APTT (22.0-30.0) sec Sodium (137-145) mmol/L Chloride (98-107) mmol/L BUN (9-20) mg/dL Creatinine (0.66-1.25) mg/dL Glucose (74-99) mg/dL Plasma Lactic Acid Harrison 2.2 H* (0.7-2.0) mmol/L Calcium (8.4-10.2) mg/dL Troponin I 0.041 H* 0.040 H* (0.000-0.034) ng/mL Total Protein (6.3-8.2) g/dL Albumin (3.5-5.0) g/dL Urine Mucus (None) /hpf 06/18/23 06/18/23 06/19/23 Range/Units 17:33 23:59 06:59 RBC (4.30-5.90) m/uL Hgb (13.0-17.5) gm/dL Hct (39.0-53.0) % RDW (11.5-15.5) % Plt Count (150-450) k/uL Lymphocytes # (1.0-4.8) k/uL PT (10.0-12.5) sec INR (<1.2) APTT (22.0-30.0) sec Sodium 130 L (137-145) mmol/L Chloride (98-107) mmol/L BUN 23 H (9-20) mg/dL Creatinine 0.26 L (0.66-1.25) mg/dL Glucose (74-99) mg/dL Plasma Lactic Acid Harrison (0.7-2.0) mmol/L Calcium 6.8 L (8.4-10.2) mg/dL Troponin I 0.041 H* (0.000-0.034) ng/mL Total Protein 4.3 L (6.3-8.2) g/dL Albumin 2.2 L (3.5-5.0) g/dL Urine Mucus Rare H (None) /hpf 06/19/23 Range/Units 07:05 RBC 2.57 L (4.30-5.90) m/uL Hgb 7.5 L (13.0-17.5) gm/dL Hct 23.7 L (39.0-53.0) % RDW 16.0 H (11.5-15.5) % Plt Count 84 L (150-450) k/uL Lymphocytes # 0.1 L (1.0-4.8) k/uL PT (10.0-12.5) sec INR (<1.2) APTT (22.0-30.0) sec Sodium (137-145) mmol/L Chloride (98-107) mmol/L BUN (9-20) mg/dL Creatinine (0.66-1.25) mg/dL Glucose (74-99) mg/dL Plasma Lactic Acid Harrison (0.7-2.0) mmol/L Calcium (8.4-10.2) mg/dL Troponin I (0.000-0.034) ng/mL Total Protein (6.3-8.2) g/dL Albumin (3.5-5.0) g/dL Urine Mucus (None) /hpf Thrombosis Risk Factor Assmnt - Choose All That Apply Any of the Below Risk Factors Present?: No Other Risk Factors: Yes Each Risk Factor Represents 3 Points: Age 75 years or older Thrombosis Risk Factor Assessment Total Risk Factor Score: 3 Thrombosis Risk Factor Assessment Level: Moderate Risk
[2023-06-19] MEDS: RIVAROXABAN 20 MG TAB PO SCH (18:11)
[2023-06-19] MEDS: BUDESONIDE 1 MG/2 ML NEBU INHALATION SCH (20:10)
[2023-06-19] MEDS: FORMOTEROL FUMARATE 20 MCG/2 ML NEBU INHALATION SCH (20:10)
[2023-06-19] MEDS: ATORVASTATIN 40 MG TAB PO SCH (20:54)
[2023-06-19] MEDS: CLOBETASOL PROP 0.05% CR 15GM TOPICAL SCH (20:55)
[2023-06-19] MEDS ORDERED: guaiFENesin 600 MG TABLET.ER PO SCH (21:00)
[2023-06-20] MEDS: methylPREDNISolone SOD SUCCI 125 MG/2 ML VIAL IV SCH ×5 (00:07→23:14)
[2023-06-20] MEDS: SODIUM CHLORIDE 0.9% 1,000 ML IV SCH ×2 (00:46→19:47)
[2023-06-20] MEDS: LIDOCAINE 5% PATCH TOPICAL SCH (07:46)
[2023-06-20] MEDS: IPRATROPIUM-ALBUTEROL 3 ML NEB INHALATION SCH ×4 (08:16→20:05)
[2023-06-20] MEDS: BUDESONIDE 1 MG/2 ML NEBU INHALATION SCH ×2 (08:16→20:05)
[2023-06-20] MEDS: FORMOTEROL FUMARATE 20 MCG/2 ML NEBU INHALATION SCH ×2 (08:16→20:05)
[2023-06-20] MEDS: LORazepam 2 MG/ML INJ IV PRN ×2 (09:39→23:14)
[2023-06-20] MEDS: AZITHROMYCIN 500 MG in SODIUM CHLORIDE 0.9% 250 ML IVPB SCH (10:25)
--- NOTE | 2023-06-20 11:55 | P.PN ---
Subjective Progress Note Date: 06/20/23 This is 77-year-old male patient with a known history of chronic obstructive pulmonary disease on home oxygen at 3 L/m per nasal cannula, chronic tobacco dependence however quit approximately 3 months ago, BPH, hyperlipidemia, congestive heart failure, atrial fibrillation anticoagulated with Xarelto. He was brought into the emergency room yesterday for altered mental status and delirium and hypoxemia. Chest x-ray revealed patchy consolidative opacity in the right lung base and small right pleural effusion. Nodular opacities in the right lung apex and right hilar opacity. White counts and 0.0. Hemoglobin 7.5. Platelets 84,000. Sodium 1:30. Potassium 3.6. Bicarb 29. BUN 26. Creatinine 0.26. Troponin 0.041. ProBNP 723. He is seen today in consultation on the regular medical floor. He is currently resting comfortably in bed. Awake and alert. He has a very loose congested cough. He is maintaining O2 saturations in the low 90s on 3 L/m per nasal cannula. He is afebrile. He's be en initiated on ceftriaxone and azithromycin. Anticoagulated with Xarelto. The patient is seen today 06/20/2023 in follow-up on the regular medical floor. He is currently resting in bed. Awake and alert in no acute distress. He still has a very loose congested cough. He is maintaining O2 saturations in the 90s on 3 L/m per nasal cannula. Blood cultures revealing no growth. proCalcitonin 0.67. He is currently on DuoNeb inhalations, Pulmicort and Perforomist inhalations, Solu-Medrol. He is on antibiotics in the form of ceftriaxone and azithromycin. Anticoagulated with Xarelto. Normal saline at 75 ML's per hour. Objective - Vital Signs Vital signs: Vital Signs Temp 97.5 F L 06/20/23 06:57 Pulse 100 06/20/23 11:29 Resp 21 06/20/23 07:20 BP 76/45 06/20/23 06:57 Pulse Ox 94 L 06/20/23 06:57 FiO2 Intake & Output 06/19/23 06/20/23 06/20/23 18:59 06:59 18:59 Output Total 450 300 Balance -450 -300 Weight 49.8 kg Output: Urine 450 300 Other: Voiding Method External Catheter Indwelling Catheter Indwelling Catheter # Voids 1 - Exam GENERAL EXAM: Alert, cachectic, 77-year-old male patient, on 3 L nasal cannula, in no acute distress. HEAD: Normocephalic. EYES: Normal reaction of pupils, equal size. NOSE: Clear with pink turbinates. THROAT: No erythema or exudates. NECK: No masses, no JVD. CHEST: No chest wall deformity. LUNGS: Equal air entry with lateral end expiratory wheeze, diminished, crackles in the right lung base. CVS: S1 and S2 normal with no audible murmur, irregular rhythm. ABDOMEN: No hepatosplenomegaly, normal bowel sounds, no guarding or rigidity. SPINE: No scoliosis or deformity SKIN: No rashes CENTRAL NERVOUS SYSTEM: No focal deficits, tone is normal in all 4 extremities. EXTREMITIES: There is no peripheral edema. No clubbing, no cyanosis. Peripheral pulses are intact. - Labs CBC & Chem 7: 06/19/23 07:05 06/19/23 06:59 Labs: Abnormal Lab Results - Last 24 Hours (Table) 06/19/23 Range/Units 06:59 Procalcitonin 0.67 H (0.02-0.09) ng/mL Microbiology - Last 24 Hours (Table) 06/18/23 12:35 Blood Culture - Preliminary Blood Assessment and Plan Assessment: Acute on chronic hypoxemic respiratory failure secondary to an acute exacerbation of COPD complicated by right lower lobe pneumonia and some fluid volume overload. Pro-calcitonin 0.67. History of oxygen dependent chronic obstructive pulmonary disease Atrial fibrillation, antiplatelet with Eliquis Hyperlipidemia Hypertension History of congestive heart failure History of BPH Plan: The patient was seen and evaluated Labs and medications reviewed Continue Rocephin and azithromycin Continue bronchodilators, steroids, Mucinex Add a flutter valve Obtain a sputum sample Prognosis is guarded DO NOT RESUSCITATE/DO NOT INTUBATE CODE STATUS We will continue to follow I have personally seen and examined the patient, performed the documentation and the assessment and plan as written. Number of minutes spent on the visit: 10.
--- NOTE | 2023-06-20 13:08 | P.PN ---
Progress Note - Text Progress Note Date: 06/20/23 Chief Complaint: Weakness diet congestion This is a 77-year-old patient who follows with Dr. Noah Riggins. History is obtained by patient's significant other Greta at the Bedside. They've Been Together for over 21 Years. Patient uses discharge from [facility] and sent to [facility] rehab about 5 days ago. Patient for the longest times had decreased oral intake. Congested cough. Long-standing smoker. Loss of muscle mass and rate. Tired. Dizzy. Low blood pressure. Does use a walker. June 20: Short of breath. Congested chest. Clear nasal cannula suctioning was done. Patient seems to have no gag. Very high risk for aspiration. Spoke to Greta-she agrees that no significant improvement. Probably aim for hospice. Prognosis poor. Also spoke to the nurse oriented and thus respiratory therapist. Active Medications Acetaminophen (Acetaminophen Tab 325 Mg Tab) 650 mg PO Q6HR PRN PRN Reason: Mild Pain or Fever > 100.5 Acetaminophen (Acetaminophen Tab 325 Mg Tab) 650 mg PO Q4H PRN PRN Reason: Pain Albuterol/Ipratropium (Ipratropium-Albuterol 3 Ml Neb) 3 ml INHALATION RT-QID PRN PRN Reason: Shortness Of Breath Albuterol/Ipratropium (Ipratropium-Albuterol 3 Ml Neb) 3 ml INHALATION RT-QID COUNT INCLUDES THE [facility] Last Admin: 06/20/23 11:18 Dose: 3 ml Atorvastatin Calcium (Atorvastatin 40 Mg Tab) 40 mg PO HS COUNT INCLUDES THE [facility] Last Admin: 06/19/23 20:54 Dose: 40 mg Bisacodyl (Bisacodyl 10 Mg Supp) 10 mg RECTAL DAILY PRN PRN Reason: Constipation Budesonide (Budesonide 1 Mg/2 Ml Nebu) 1 mg INHALATION RT-BID COUNT INCLUDES THE [facility] Last Admin: 06/20/23 08:16 Dose: 1 mg Clobetasol Propionate (Clobetasol Prop 0.05% Cr 15gm) 1 applic TOPICAL BID@0800,1700 COUNT INCLUDES THE [facility]; Protocol Last Admin: 06/19/23 20:55 Dose: Not Given Clopidogrel Bisulfate (Clopidogrel 75 Mg Tab) 75 mg PO DAILY COUNT INCLUDES THE [facility] Last Admin: 06/19/23 08:24 Dose: 75 mg Famotidine (Famotidine 20 Mg Tab) 20 mg PO BID@0800,1700 COUNT INCLUDES THE [facility] Last Admin: 06/19/23 18:08 Dose: 20 mg Formoterol Fumarate (Formoterol Fumarate 20 Mcg/2 Ml Nebu) 20 mcg INHALATION RT-BID COUNT INCLUDES THE [facility] Last Admin: 06/20/23 08:16 Dose: 20 mcg Furosemide (Furosemide 20 Mg Tab) 20 mg PO DAILY PRN PRN Reason: Edema Guaifenesin (Guaifenesin 600 Mg Tablet.Er) 600 mg PO QID COUNT INCLUDES THE [facility] Last Admin: 06/19/23 20:54 Dose: 600 mg Ceftriaxone Sodium 2 gm/ (Sodium Chloride) 50 mls @ 100 mls/hr IVPB Q24HR COUNT INCLUDES THE [facility]; Protocol Stop: 06/22/23 09:29 Last Admin: 06/20/23 09:54 Dose: 100 mls/hr Azithromycin 500 mg/ Sodium (Chloride) 250 mls @ 250 mls/hr IVPB DAILY COUNT INCLUDES THE [facility]; Protocol Stop: 06/22/23 09:01 Last Admin: 06/20/23 10:25 Dose: 250 mls/hr Sodium Chloride (Saline 0.9%) 1,000 mls @ 75 mls/hr IV .[id number] COUNT INCLUDES THE [facility] Last Admin: 06/20/23 00:46 Dose: Not Given Ibuprofen (Ibuprofen 400 Mg Tab) 400 mg PO Q6HR PRN PRN Reason: Mild Pain or Fever > 100.5 Lidocaine (Lidocaine 5% Patch) 1 patch TOPICAL DAILY COUNT INCLUDES THE [facility]; Protocol Last Admin: 06/20/23 07:46 Dose: Not Given Lorazepam (Lorazepam 2 Mg/Ml Inj) 0.5 mg IV Q6HR PRN PRN Reason: Anxiety Last Admin: 06/20/23 09:39 Dose: 0.5 mg Magnesium Hydroxide (Magnesium Hydroxide 2,400 Mg/30 Ml Cup) 2,400 mg PO Q2D PRN PRN Reason: Constipation Methylprednisolone Sodium Succinate (Methylprednisolone Sod Succi 125 Mg/2 Ml Vial) 60 mg IV Q6HR COUNT INCLUDES THE [facility] Last Admin: 06/20/23 06:01 Dose: 60 mg Metoprolol Succinate (Metoprolol Succinate (Er) 25 Mg Tab.Er.24h) 12.5 mg PO DAILY COUNT INCLUDES THE [facility] Last Admin: 06/19/23 08:24 Dose: 12.5 mg Midodrine (Midodrine 5 Mg Tab) 5 mg PO TID@0800,1200,1700 COUNT INCLUDES THE [facility] Last Admin: 06/19/23 18:09 Dose: 5 mg Miscellaneous Information (Pneumonia Protocol Utilized 1 Each Misc) 1 each PO ONCE PRN PRN Reason: Per Protocol Multivitamins (Multivitamins, Thera 1 Each Tab) 1 each PO DAILY COUNT INCLUDES THE [facility] Last Admin: 06/19/23 08:24 Dose: 1 each Naloxone HCl (Naloxone 0.4 Mg/Ml 1 Ml Vial) 0.2 mg IV Q2M PRN PRN Reason: Opioid Reversal Ondansetron HCl (Ondansetron 4 Mg/2 Ml Vial) 4 mg IVP Q8HR PRN PRN Reason: Nausea And Vomiting Polyethylene Glycol (Polyethylene Glycol 3350 17 Gm Powd.Pack) 17 gm PO BID PRN PRN Reason: Constipation Rivaroxaban (Rivaroxaban 20 Mg Tab) 20 mg PO DAILY@1700 COUNT INCLUDES THE [facility]; Protocol Last Admin: 06/19/23 18:11 Dose: 20 mg Sodium Biphosphate/Sodium Phosphate (Na Phos,M-B/Na Phos,Di-Ba 133 Ml Enema) 133 ml RECTAL DAILY PRN PRN Reason: Constipation Sodium Chloride (Sodium Chloride 0.65% Nasal [place] 44 Ml Btl) 2 spray NASAL QID PRN PRN Reason: PNEUMONIA Tamsulosin HCl (Tamsulosin 0.4 Mg Cap.Er.24h) 0.4 mg PO BID@0800,1700 COUNT INCLUDES THE [facility] Last Admin: 06/19/23 18:08 Dose: 0.4 mg Past medical history to include: COPD, atrial flutter, peripheral artery disease with a bypass, hyperlipidemia, GERD, BPH Social history: Patient stopped smoking about 6 weeks ago. Average 3-4 packs a day for most of his life. Now down to a few cigarettes a day. Smoking for 56 years. Patient's significant other is Greta Physical examination: VITAL SIGNS: 97.5, 101, 21, 76/45, 94% on 3 L GENERAL: reclining tired, short of breath, arousable. Audibly congested chest EYES: [Pupils equal. Conjunctiva pale HEENT: [External appearance of nose and ears normal, oral cavity-poor oral hygiene with crusty presentation NECK: JVD not raised; masses not palpable. HEART: First and second heart sounds are normal; no edema. LUNGS: Respiratory rate increased decreased breath sound some coarse basal crackles. ABDOMEN: Soft, nontender, liver spleen not palpable, no masses palpable. PSYCH: Tired, arousable. MUSCULOSKELETAL:No Clubbing/cyanosis;muscles-grossly intact. Loss of muscle mass. Prominent bones. INVESTIGATIONS, reviewed in the clinical context: White count 7 hemoglobin 7.5 platelets 84 sodium 1:30 potassium 3.6 BUN 23 creatinine 0.26 albumin 2.2 EKG tracing personally reviewed by me-atrial flutter. Right bundle-branch block. Chest x-ray film personally reviewed by me-right basilar infiltrate. Borderline cardiomegaly Assessment and plan: -Right lower lobe pneumonia./Probably aspiration Suspect gram-negative organism: Worsening IV ceftriaxone. Zithromax. Mucinex. -Acute COPD exacerbation in the long-standing smoker. Hasn't smoked for 6 weeks: Not improving DuoNeb. Solu-Medrol. -Acute metabolic encephalopathy/delirium multifactorial -Severe protein calorie malnutrition. According to significant other patient has not eaten for a long time. Glucerna. -Thrombocytopenia from underlying infection -Anemia of chronic disease including nutritional S patient got poor oral intake -Hyponatremia, decreased oral intake -Persistent atrial flutter, rate controlled Toprol-XL 12.5 mg a day. Xarelto 20 mg a day -Hyperlipidemia Crestor 20 mg daily at bedtime -GERD Pepcid 20 mg twice a day -BPH Flomax 0.4 mg twice a day -Chronic hypotension Midodrine 5 mg 3 times a day ROSA stockings -Chronic medical debility -DO NOT RESUSCITATE. -Greta MAGALLANES significant other Advance care planning: [06/19/2023] Care was discussed length with patient's significant other Greta. She understands prognosis is guarded. Patient has not been eating for a long time. Oral condition is due to recheck. Patient does not improve significantly on the road she does understand hospice would be appropriate. At the present time continue treatment Time spent for this about 25 minutes Discussed again with Greta. Decreased that patient doing poorly. Poor gag reflex. Hospice will be appropriate. Patient is having trouble swallowing.
[2023-06-20] MEDS: CLOBETASOL PROP 0.05% CR 15GM TOPICAL SCH ×2 (14:44→19:47)
[2023-06-20] MEDS: FAMOTIDINE 20 MG TAB PO SCH ×2 (14:44→19:46)
[2023-06-20] MEDS: MIDODRINE 5 MG TAB PO SCH ×3 (14:44→18:06)
[2023-06-20] MEDS: MULTIVITAMINS, THERA 1 EACH TAB PO SCH (14:45)
[2023-06-20] MEDS: METOPROLOL SUCCINATE (ER) 25 MG TAB.ER.24H PO SCH (14:45)
[2023-06-20] MEDS: guaiFENesin 600 MG TABLET.ER PO SCH ×4 (14:45→20:51)
[2023-06-20] MEDS: CLOPIDOGREL 75 MG TAB PO SCH (14:45)
[2023-06-20] MEDS: TAMSULOSIN 0.4 MG CAP.ER.24H PO SCH ×2 (14:45→19:47)
[2023-06-20] MEDS: ATORVASTATIN 40 MG TAB PO SCH (19:47)
[2023-06-20] MEDS: RIVAROXABAN 20 MG TAB PO SCH (19:48)
[2023-06-21] MEDS: methylPREDNISolone SOD SUCCI 125 MG/2 ML VIAL IV SCH ×2 (05:16→12:37)
[2023-06-21] MEDS: SODIUM CHLORIDE 0.9% 1,000 ML IV SCH (05:18)
[2023-06-21 07:49] VITALS: BP 108/71; RESP 22; TEMP 97.8
[2023-06-21] MEDS: TAMSULOSIN 0.4 MG CAP.ER.24H PO SCH (08:35)
[2023-06-21] MEDS: FAMOTIDINE 20 MG TAB PO SCH (08:35)
[2023-06-21] MEDS: MIDODRINE 5 MG TAB PO SCH ×2 (08:35→12:37)
[2023-06-21] MEDS: CLOPIDOGREL 75 MG TAB PO SCH (08:36)
[2023-06-21] MEDS: guaiFENesin 600 MG TABLET.ER PO SCH ×2 (08:36→12:38)
[2023-06-21] MEDS: MULTIVITAMINS, THERA 1 EACH TAB PO SCH (08:36)
[2023-06-21] MEDS: METOPROLOL SUCCINATE (ER) 25 MG TAB.ER.24H PO SCH (08:43)
[2023-06-21] MEDS: LIDOCAINE 5% PATCH TOPICAL SCH (08:43)
[2023-06-21] MEDS: IPRATROPIUM-ALBUTEROL 3 ML NEB INHALATION SCH ×2 (09:03→12:45)
[2023-06-21] MEDS: BUDESONIDE 1 MG/2 ML NEBU INHALATION SCH (09:03)
[2023-06-21] MEDS: FORMOTEROL FUMARATE 20 MCG/2 ML NEBU INHALATION SCH (09:03)
[2023-06-21] MEDS: LORazepam 2 MG/ML INJ IV PRN (09:27)
[2023-06-21] MEDS: CLOBETASOL PROP 0.05% CR 15GM TOPICAL SCH (10:48)
[2023-06-21] MEDS: AZITHROMYCIN 500 MG in SODIUM CHLORIDE 0.9% 250 ML IVPB SCH (10:49)
[2023-06-21 13:21] VITALS: PULSE 69
--- NOTE | 2023-06-21 14:41 | P.PN ---
Subjective Progress Note Date: 06/21/23 This is 77-year-old male patient with a known history of chronic obstructive pulmonary disease on home oxygen at 3 L/m per nasal cannula, chronic tobacco dependence however quit approximately 3 months ago, BPH, hyperlipidemia, congestive heart failure, atrial fibrillation anticoagulated with Xarelto. He was brought into the emergency room yesterday for altered mental status and delirium and hypoxemia. Chest x-ray revealed patchy consolidative opacity in the right lung base and small right pleural effusion. Nodular opacities in the right lung apex and right hilar opacity. White counts and 0.0. Hemoglobin 7.5. Platelets 84,000. Sodium 1:30. Potassium 3.6. Bicarb 29. BUN 26. Creatinine 0.26. Troponin 0.041. ProBNP 723. He is seen today in consultation on the regular medical floor. He is currently resting comfortably in bed. Awake and alert. He has a very loose congested cough. He is maintaining O2 saturations in the low 90s on 3 L/m per nasal cannula. He is afebrile. He's b een initiated on ceftriaxone and azithromycin. Anticoagulated with Xarelto. The patient is seen today 06/20/2023 in follow-up on the regular medical floor. He is currently resting in bed. Awake and alert in no acute distress. He still has a very loose congested cough. He is maintaining O2 saturations in the 90s on 3 L/m per nasal cannula. Blood cultures revealing no growth. proCalcitonin 0.67. He is currently on DuoNeb inhalations, Pulmicort and Perforomist inhalations, Solu-Medrol. He is on antibiotics in the form of ceftriaxone and azithromycin. Anticoagulated with Xarelto. Normal saline at 75 ML's per hour. On today's evaluation of 06/21/2023, the patient is very much lethargic, weak, quite debilitated and sluggishly responsive. The patient has COPD. The patient is very much debilitated and weak with a very poor baseline performance of functional status. At the next discussion with the significant other at the bedside. The plan for now is to proceed with hospice care. The patient may be candidate on outpatient hospice treatment. He has advanced end-stage COPD. Objective - Vital Signs Vital signs: Vital Signs Temp 97.8 F 06/21/23 07:28 Pulse 71 06/21/23 09:19 Resp 22 06/21/23 07:28 BP 108/71 06/21/23 07:28 Pulse Ox 93 L 06/21/23 09:05 FiO2 Intake & Output 06/20/23 06/21/23 06/21/23 18:59 06:59 18:59 Intake Total 600 Output Total 600 Balance 600 -600 Intake: Intake, IV Titration 600 Amount Azithromycin 500 mg In 100 Sodium Chloride 0.9% 250 ml @ 250 mls/hr IVPB DAILY [facility] Rx#:[id number] Sodium Chloride 0.9% 1, 450 000 ml @ 75 mls/hr IV . [id number] [facility] Rx#:[id number] cefTRIAXone 2 gm In 50 Sodium Chloride 0.9% 50 ml @ 100 mls/hr IVPB Q24HR [facility] Rx#:[id number] Output: Urine 600 Other: Voiding Method Indwelling Catheter Indwelling Catheter Indwelling Catheter - Exam GENERAL EXAM: Alert, cachectic, 77-year-old male patient, on 3 L nasal cannula, in no acute distress. HEAD: Normocephalic. EYES: Normal reaction of pupils, equal size. NOSE: Clear with pink turbinates. THROAT: No erythema or exudates. NECK: No masses, no JVD. CHEST: No chest wall deformity. LUNGS: Equal air entry with lateral end expiratory wheeze, diminished, crackles in the right lung base. CVS: S1 and S2 normal with no audible murmur, irregular rhythm. ABDOMEN: No hepatosplenomegaly, normal bowel sounds, no guarding or rigidity. SPINE: No scoliosis or deformity SKIN: No rashes CENTRAL NERVOUS SYSTEM: No focal deficits, tone is normal in all 4 extremities. EXTREMITIES: There is no peripheral edema. No clubbing, no cyanosis. Peripheral pulses are intact. - Labs CBC & Chem 7: 06/19/23 07:05 06/19/23 06:59 Labs: Microbiology - Last 24 Hours (Table) 06/18/23 12:35 Blood Culture - Preliminary Blood Assessment and Plan Plan: Acute on chronic hypoxemic respiratory failure secondary to an acute exacerbation of COPD complicated by right lower lobe pneumonia and some fluid volume overload. Pro-calcitonin 0.67. History of oxygen dependent chronic obstructive pulmonary disease Atrial fibrillation, antiplatelet with Eliquis Hyperlipidemia Hypertension History of congestive heart failure History of BPH Plan: Is doing very poor, and Ativan as needed and the patient is quite debilitated and has very impaired performance and functional status. The significant other is considering hospice care. Hospice will be consulted. Awaiting hospice co nsultation the patient will be discharged with hospice care. Prognosis is guarded DO NOT RESUSCITATE/DO NOT INTUBATE CODE STATUS We will continue to follow
--- NOTE | 2023-06-21 17:57 | P.DS ---
Providers Date of admission: 06/18/23 14:41 Expected date of discharge: 06/21/23 Attending physician: Tapan Morse Consults: 06/18/23 14:41 Consult Physician Routine Consulting Provider: Prem Hill Consult Reason/Comments: known Do you want consulting provider notified?: Yes Primary care physician: Noah Vaishnavi [facility] Course: Chief Complaint: Weakness diet congestion This is a 77-year-old patient who follows with Dr. Noah Riggins. History is obtained by patient's significant other Greta at the Bedside. They've Been Together for over 21 Years. Patient uses discharge from [facility] and sent to [facility] rehab about 5 days ago. Patient for the longest times had decreased oral intake. Congested cough. Long-standing smoker. Loss of muscle mass and rate. Tired. Dizzy. Low blood pressure. Does use a walker. June 20: Short of breath. Congested chest. Clear nasal cannula suctioning was done. Patient seems to have no gag. Very high risk for aspiration. Spoke to Greta-she agrees that no significant improvement. Probably aim for hospice. Prognosis poor. Also spoke to the nurse oriented and thus respiratory therapist. June 21: Patient continues to do poorly. Not able to eat. Very Short of breath. Very weak and tired. Care of the bedside. Decision made to proceed with GIP for symptom control. Hospice nurses present. So was the nurse. Discussion and discharge planning more than 35 minutes Past medical history to include: COPD, atrial flutter, peripheral artery disease with a bypass, hyperlipidemia, GERD, BPH Social history: Patient stopped smoking about 6 weeks ago. Average 3-4 packs a day for most of his life. Now down to a few cigarettes a day. Smoking for 56 years. Patient's significant other is Greta Physical examination: VITAL SIGNS: 97.8, 112, 22, 108/71, 92% on 3 L GENERAL: reclining tired, short of breath, lethargic EYES: [Pupils equal. Conjunctiva pale HEENT: [External appearance of nose and ears normal, oral cavity-poor oral hygiene with crusty presentation NECK: JVD not raised; masses not palpable. HEART: First and second heart sounds are normal; no edema. LUNGS: Respiratory rate increased decreased breath sound some coarse basal crackles. ABDOMEN: Soft, nontender, liver spleen not palpable, no masses palpable. PSYCH: Lethargic MUSCULOSKELETAL:No Clubbing/cyanosis;muscles-grossly intact. Loss of muscle mass. Prominent bones. INVESTIGATIONS, reviewed in the clinical context: White count 7 hemoglobin 7.5 platelets 84 sodium 1:30 potassium 3.6 BUN 23 creatinine 0.26 albumin 2.2 EKG tracing personally reviewed by me-atrial flutter. Right bundle-branch block. Chest x-ray film personally reviewed by me-right basilar infiltrate. Borderline cardiomegaly Assessment and plan: -Right lower lobe pneumonia./Probably aspiration Suspect gram-negative organism: Worsening IV ceftriaxone. Zithromax. Mucinex. -Acute COPD exacerbation in the long-standing smoker. Hasn't smoked for 6 weeks: Not improving DuoNeb. Solu-Medrol. -Acute metabolic encephalopathy/delirium multifactorial: Worsening -Severe protein calorie malnutrition. According to significant other patient has not eaten for a long time. Glucerna. -Thrombocytopenia from underlying infection -Anemia of chronic disease including nutritional S patient got poor oral intake -Hyponatremia, decreased oral intake -Persistent atrial flutter, rate controlled Toprol-XL 12.5 mg a day. Xarelto 20 mg a day -Hyperlipidemia Crestor 20 mg daily at bedtime -GERD Pepcid 20 mg twice a day -BPH Flomax 0.4 mg twice a day -Chronic hypotension Midodrine 5 mg 3 times a day ROSA stockings -Chronic medical debility -DO NOT RESUSCITATE. -Greta MAGALLANES significant other Advance care planning: [06/19/2023] Care was discussed length with patient's significant other Greta. She understands prognosis is guarded. Patient has not been eating for a long time. Oral condition is due to recheck. Patient does not improve significantly on the road she does understand hospice would be appropriate. At the present time continue treatment Time spent for this about 25 minutes Disposition: [facility] hosp[facility] Plan - Discharge Summary Discharge Rx Participant: Yes New Discharge Prescriptions: No Action polyethylene glycoL 3350 [Miralax] 17 gm PO BID PRN PRN Reason: Constipation Magnesium Hydroxide [Milk of Magnesia Concentrate] 7,200 mg PO Q2D PRN PRN Reason: Constipation Levalbuterol Nebulized [Xopenex Nebulized] 1.25 mg INHALATION RT-Q6H PRN PRN Reason: COPD Furosemide [Lasix] 20 mg PO DAILY PRN PRN Reason: Edema bisacodyL [Dulcolax] 10 mg RECTAL DAILY PRN PRN Reason: Constipation Ensure Enlive 237 ml PO TID@0800,1200,1700 Magic Cup 1 dose PO BID@1200,1700 Fluticasone Propion/Salmeterol [Fluticasone-Salmeterol 500-50] 1 puff INHALATION RT-BID@0800,1700 Famotidine [Pepcid] 20 mg PO BID@0800,1700 Clobetasol Propionate [Temovate 0.05% Cream] 1 applic TOPICAL BID@0800,1700 Rivaroxaban [Xarelto] 20 mg PO DAILY@1700 Rosuvastatin [Crestor] 20 mg PO HS Clopidogrel [Plavix] 75 mg PO DAILY Sodium Chloride 0.65% Nasal [Deep Sea (Saline)] 2 spray NASAL QID PRN PRN Reason: PNEUMONIA Na Phos,M-B/Na Phos,Di-Ba [Fleet Adult] 133 ml RECTAL DAILY PRN PRN Reason: Constipation Ipratropium-Albuterol Nebulize [Duoneb 0.5 mg-3 mg/3 ml Soln] 3 ml INHALATION RT-QID PRN PRN Reason: Shortness Of Breath Midodrine [ProAmatine] 5 mg PO TID@0800,1200,1700 Acetaminophen Tab [Tylenol] 650 mg PO Q4H PRN PRN Reason: Pain Ipratropium-Albuterol Nebulize [Duoneb 0.5 mg-3 mg/3 ml Soln] 3 ml INHALATION RT-TID Tamsulosin [Flomax] 0.4 mg PO BID@0800,1700 Tiotropium 18 Mcg/Puff [Spiriva] 1 puff INHALATION RT-DAILY Metoprolol Succinate (ER) [Toprol Xl] 12.5 mg PO DAILY predniSONE [Deltasone] See Taper PO DIRECTED Multivitamins, Thera [Multivitamin (formulary)] 1 tab PO DAILY Lidocaine 5% Patch [Lidoderm] 1 patch TOPICAL DAILY Fluticasone Nasal [place] [Flonase Nasal [place]] 1 spray EA NOSTRIL DAILY Alendronate Sodium [Fosamax] 70 mg PO TH Discharge Medication List Acetaminophen Tab [Tylenol] 650 mg PO Q4H PRN 06/18/23 [History] Alendronate Sodium [Fosamax] 70 mg PO TH 06/18/23 [History] Clobetasol Propionate [Temovate 0.05% Cream] 1 applic TOPICAL BID@0800,1700 06/18/23 [History] Clopidogrel [Plavix] 75 mg PO DAILY 06/18/23 [History] Ensure Enlive 237 ml PO TID@0800,1200,1700 06/18/23 [History] Famotidine [Pepcid] 20 mg PO BID@0800,1700 06/18/23 [History] Fluticasone Nasal [place] [Flonase Nasal [place]] 1 spray EA NOSTRIL DAILY 06/18/23 [History] Fluticasone Propion/Salmeterol [Fluticasone-Salmeterol 500-50] 1 puff INHALATION RT-BID@0800,1700 06/18/23 [History] Furosemide [Lasix] 20 mg PO DAILY PRN 06/18/23 [History] Ipratropium-Albuterol Nebulize [Duoneb 0.5 mg-3 mg/3 ml Soln] 3 ml INHALATION RT-QID PRN 06/18/23 [History] Ipratropium-Albuterol Nebulize [Duoneb 0.5 mg-3 mg/3 ml Soln] 3 ml INHALATION RT-TID 06/18/23 [History] Levalbuterol Nebulized [Xopenex Nebulized] 1.25 mg INHALATION RT-Q6H PRN 06/18/23 [History] Lidocaine 5% Patch [Lidoderm] 1 patch TOPICAL DAILY 06/18/23 [History] Magic Cup 1 dose PO BID@1200,1700 06/18/23 [History] Magnesium Hydroxide [Milk of Magnesia Concentrate] 7,200 mg PO Q2D PRN 06/18/23 [History] Metoprolol Succinate (ER) [Toprol Xl] 12.5 mg PO DAILY 06/18/23 [History] Midodrine [ProAmatine] 5 mg PO TID@0800,1200,1700 06/18/23 [History] Multivitamins, Thera [Multivitamin (formulary)] 1 tab PO DAILY 06/18/23 [History] Na Phos,M-B/Na Phos,Di-Ba [Fleet Adult] 133 ml RECTAL DAILY PRN 06/18/23 [History] Rivaroxaban [Xarelto] 20 mg PO DAILY@1700 06/18/23 [History] Rosuvastatin [Crestor] 20 mg PO HS 06/18/23 [History] Sodium Chloride 0.65% Nasal [Deep Sea (Saline)] 2 spray NASAL QID PRN 06/18/23 [History] Tamsulosin [Flomax] 0.4 mg PO BID@0800,1700 06/18/23 [History] Tiotropium 18 Mcg/Puff [Spiriva] 1 puff INHALATION RT-DAILY 06/18/23 [History] bisacodyL [Dulcolax] 10 mg RECTAL DAILY PRN 06/18/23 [History] polyethylene glycoL 3350 [Miralax] 17 gm PO BID PRN 06/18/23 [History] predniSONE [Deltasone] See Taper PO DIRECTED 06/18/23 [History] Follow up Appointment(s)/Referral(s): Bao Pereira MD [STAFF PHYSICIAN] - 1-2 days Discharge Disposition: HOME WITH HOSPICE
[2023-06-24] MEDS ORDERED: NON FORMULARY DRUG (Alendronate Sodium [Fosamax] 70 MG Tablet) PO SCH (18:51)
== END 2023-06-21 13:23 | disposition hospice, inpatient (51) | DRG 871 ==
LOC: EC 12:16 → 4SSUR 14:41
PROVIDERS: ADMIT Hospitalist; ATTEND Hospitalist
DX: A41.59 Other Gram-negative sepsis (principal); E43 Unspecified severe protein-calorie malnutrition; J69.0 Pneumonitis due to inhalation of food and vomit; J15.9 Unspecified bacterial pneumonia; G93.41 Metabolic encephalopathy; J96.21 Acute and chronic respiratory failure with hypoxia; E87.1 Hypo-osmolality and hyponatremia; I48.92 Unspecified atrial flutter; F05 Delirium due to known physiological condition; J44.1 Chronic obstructive pulmonary disease with (acute) exacerbation; J44.0 Chronic obstructive pulmonary disease with (acute) lower respiratory infection; Z68.1 Body mass index [BMI] 19.9 or less, adult; Z66 Do not resuscitate; D63.8 Anemia in other chronic diseases classified elsewhere; D69.59 Other secondary thrombocytopenia; E78.5 Hyperlipidemia, unspecified; K21.9 Gastro-esophageal reflux disease without esophagitis; F41.9 Anxiety disorder, unspecified; I11.0 Hypertensive heart disease with heart failure; F17.210 Nicotine dependence, cigarettes, uncomplicated; I48.91 Unspecified atrial fibrillation; I50.9 Heart failure, unspecified; I73.9 Peripheral vascular disease, unspecified; I95.89 Other hypotension; K59.00 Constipation, unspecified; N40.0 Benign prostatic hyperplasia without lower urinary tract symptoms; R13.10 Dysphagia, unspecified; Z79.01 Long term (current) use of anticoagulants; Z79.02 Long term (current) use of antithrombotics/antiplatelets; Z79.83 Long term (current) use of bisphosphonates; Z79.899 Other long term (current) drug therapy; Z99.81 Dependence on supplemental oxygen; Z88.5 Allergy status to narcotic agent
CPT/HCPCS: 36415; 71045; 80053; 81003; 83605; 83735; 83880; 84100; 84145; 84443; 84484; 85025; 85610; 85730; 87040; 87070; 87077; 87186; 87205; 87449; 93005; 94640; 94760; 96361; 96365; 96366; 96367; 96375; 99291

== ENCOUNTER 2023-06-21 12:46 | Inpatient (IN) | payer MEDICAID ==
[2023-06-21] MEDS ORDERED: DRY MOUTH SPRAY 44.3 SPRAY/44.3 ML SPRAY MUCOUS MEM PRN (12:53)
[2023-06-21] MEDS ORDERED: GLYCOPYRROLATE 0.2 MG/ML 2 ML VIAL IVP PRN (12:53)
[2023-06-21] MEDS ORDERED: ATROPINE OPHTH SOLN 1% 5ML BTL SUBLINGUAL PRN (12:53)
[2023-06-21] MEDS ORDERED: ACETAMINOPHEN SUPPOSITORY 650 MG SUPP RECTAL PRN (12:53)
[2023-06-21] MEDS ORDERED: SCOPOLAMINE 1 MG/72 HR PATCH TRANSDERM SCH (13:00)
[2023-06-21] MEDS: HYDROmorphone 1 MG/ML 1 ML SYRINGE IVP PRN ×3 (13:33→23:53)
[2023-06-21] MEDS: LORazepam 2 MG/ML INJ IV PRN (14:29)
[2023-06-22] MEDS: LORazepam 2 MG/ML INJ IV PRN ×2 (01:59→06:47)
[2023-06-22] MEDS: HYDROmorphone 1 MG/ML 1 ML SYRINGE IVP PRN (04:51)
[2023-06-22 06:56] VITALS: RESP 30
--- NOTE | 2023-06-23 20:34 | P.DS ---
Providers Date of admission: 06/21/23 13:26 Expected date of discharge: 06/22/23 Attending physician: Tapan Morse Primary care physician: Noah Vaishnavi [facility] Course: Patient admitted to [facility] hospice. [facility] Comfort care measures. Significant other was present. Patient . Cause of : Pneumonia COPD Plan - Discharge Summary New Discharge Prescriptions: No Action polyethylene glycoL 3350 [Miralax] 17 gm PO BID PRN PRN Reason: Constipation Magnesium Hydroxide [Milk of Magnesia Concentrate] 7,200 mg PO Q2D PRN PRN Reason: Constipation Levalbuterol Nebulized [Xopenex Nebulized] 1.25 mg INHALATION RT-Q6H PRN PRN Reason: COPD Furosemide [Lasix] 20 mg PO DAILY PRN PRN Reason: Edema bisacodyL [Dulcolax] 10 mg RECTAL DAILY PRN PRN Reason: Constipation Ensure Enlive 237 ml PO TID@0800,1200,1700 Magic Cup 1 dose PO BID@1200,1700 Fluticasone Propion/Salmeterol [Fluticasone-Salmeterol 500-50] 1 puff INHALATION RT-BID@0800,1700 Famotidine [Pepcid] 20 mg PO BID@0800,1700 Clobetasol Propionate [Temovate 0.05% Cream] 1 applic TOPICAL BID@0800,1700 Rivaroxaban [Xarelto] 20 mg PO DAILY@1700 Rosuvastatin [Crestor] 20 mg PO HS Clopidogrel [Plavix] 75 mg PO DAILY Sodium Chloride 0.65% Nasal [Deep Sea (Saline)] 2 spray NASAL QID PRN PRN Reason: PNEUMONIA Na Phos,M-B/Na Phos,Di-Ba [Fleet Adult] 133 ml RECTAL DAILY PRN PRN Reason: Constipation Ipratropium-Albuterol Nebulize [Duoneb 0.5 mg-3 mg/3 ml Soln] 3 ml INHALATION RT-QID PRN PRN Reason: Shortness Of Breath Midodrine [ProAmatine] 5 mg PO TID@0800,1200,1700 Acetaminophen Tab [Tylenol] 650 mg PO Q4H PRN PRN Reason: Pain Ipratropium-Albuterol Nebulize [Duoneb 0.5 mg-3 mg/3 ml Soln] 3 ml INHALATION RT-TID Tamsulosin [Flomax] 0.4 mg PO BID@0800,1700 Tiotropium 18 Mcg/Puff [Spiriva] 1 puff INHALATION RT-DAILY Metoprolol Succinate (ER) [Toprol Xl] 12.5 mg PO DAILY predniSONE [Deltasone] See Taper PO DIRECTED Multivitamins, Thera [Multivitamin (formulary)] 1 tab PO DAILY Lidocaine 5% Patch [Lidoderm] 1 patch TOPICAL DAILY Fluticasone Nasal [place] [Flonase Nasal [place]] 1 spray EA NOSTRIL DAILY Alendronate Sodium [Fosamax] 70 mg PO TH Discharge Medication List Acetaminophen Tab [Tylenol] 650 mg PO Q4H PRN 06/18/23 [History] Alendronate Sodium [Fosamax] 70 mg PO TH 06/18/23 [History] Clobetasol Propionate [Temovate 0.05% Cream] 1 applic TOPICAL BID@0800,1700 06/18/23 [History] Clopidogrel [Plavix] 75 mg PO DAILY 06/18/23 [History] Ensure Enlive 237 ml PO TID@0800,1200,1700 06/18/23 [History] Famotidine [Pepcid] 20 mg PO BID@0800,1700 06/18/23 [History] Fluticasone Nasal [place] [Flonase Nasal [place]] 1 spray EA NOSTRIL DAILY 06/18/23 [History] Fluticasone Propion/Salmeterol [Fluticasone-Salmeterol 500-50] 1 puff INHALATION RT-BID@0800,1700 06/18/23 [History] Furosemide [Lasix] 20 mg PO DAILY PRN 06/18/23 [History] Ipratropium-Albuterol Nebulize [Duoneb 0.5 mg-3 mg/3 ml Soln] 3 ml INHALATION RT-QID PRN 06/18/23 [History] Ipratropium-Albuterol Nebulize [Duoneb 0.5 mg-3 mg/3 ml Soln] 3 ml INHALATION RT-TID 06/18/23 [History] Levalbuterol Nebulized [Xopenex Nebulized] 1.25 mg INHALATION RT-Q6H PRN 06/18/23 [History] Lidocaine 5% Patch [Lidoderm] 1 patch TOPICAL DAILY 06/18/23 [History] Magic Cup 1 dose PO BID@1200,1700 06/18/23 [History] Magnesium Hydroxide [Milk of Magnesia Concentrate] 7,200 mg PO Q2D PRN 06/18/23 [History] Metoprolol Succinate (ER) [Toprol Xl] 12.5 mg PO DAILY 06/18/23 [History] Midodrine [ProAmatine] 5 mg PO TID@0800,1200,1700 06/18/23 [History] Multivitamins, Thera [Multivitamin (formulary)] 1 tab PO DAILY 06/18/23 [History] Na Phos,M-B/Na Phos,Di-Ba [Fleet Adult] 133 ml RECTAL DAILY PRN 06/18/23 [History] Rivaroxaban [Xarelto] 20 mg PO DAILY@1700 06/18/23 [History] Rosuvastatin [Crestor] 20 mg PO HS 06/18/23 [History] Sodium Chloride 0.65% Nasal [Deep Sea (Saline)] 2 spray NASAL QID PRN 06/18/23 [History] Tamsulosin [Flomax] 0.4 mg PO BID@0800,1700 06/18/23 [History] Tiotropium 18 Mcg/Puff [Spiriva] 1 puff INHALATION RT-DAILY 06/18/23 [History] bisacodyL [Dulcolax] 10 mg RECTAL DAILY PRN 06/18/23 [History] polyethylene glycoL 3350 [Miralax] 17 gm PO BID PRN 06/18/23 [History] predniSONE [Deltasone] See Taper PO DIRECTED 06/18/23 [History] Discharge Disposition: - Preliminary Cause of Preliminary Cause of : Pneumonia
== END 2023-06-22 09:08 | disposition expired | DRG 951 ==
LOC: 4SSUR 13:26
PROVIDERS: ADMIT Hospitalist; ATTEND Hospitalist
DX: Z51.5 Encounter for palliative care (principal); J15.69 Pneumonia due to other Gram-negative bacteria; E43 Unspecified severe protein-calorie malnutrition; Z68.1 Body mass index [BMI] 19.9 or less, adult; J44.0 Chronic obstructive pulmonary disease with (acute) lower respiratory infection; J44.1 Chronic obstructive pulmonary disease with (acute) exacerbation; I48.92 Unspecified atrial flutter; Z66 Do not resuscitate; I45.10 Unspecified right bundle-branch block; I73.9 Peripheral vascular disease, unspecified; E78.5 Hyperlipidemia, unspecified; N40.0 Benign prostatic hyperplasia without lower urinary tract symptoms; K21.9 Gastro-esophageal reflux disease without esophagitis; Z87.891 Personal history of nicotine dependence; Z79.01 Long term (current) use of anticoagulants; Z95.1 Presence of aortocoronary bypass graft; Z90.49 Acquired absence of other specified parts of digestive tract; Z88.5 Allergy status to narcotic agent